=== PATIENT | male | born 1930 | race Caucasian/White ===

== ENCOUNTER 2018-06-10 22:26 | Inpatient (IN) | payer MEDICARE, OTHER ==
[~2018-06-10] VITALS: Ht 172.7 cm; Wt 81.5 kg
[2018-06-10 23:12] LABS: BASOPHILS ABSOLUTE AUTO 0.05 K/mm3 (0.00-0.23); BASOPHILS PERCENT AUTO 0 % (0-2); EOSINOPHILS ABSOLUTE AUTO 0.01 K/mm3 (0.00-0.68); EOSINOPHILS PERCENT AUTO 0 % (0-6); Hematocrit 49.3 % (37.0-53.0); IMMATURE GRAN ABSOLUTE AUTO 0.12 K/mm3 (0.00-0.10); IMMATURE GRAN PERCENT AUTO 1 % (0-1); LYMPHOCYTES ABSOLUTE AUTO 1.68 K/mm3 (0.84-5.20); LYMPHOCYTES PERCENT AUTO 11 % (21-46); MONOCYTES ABSOLUTE AUTO 1.41 K/mm3 (0.16-1.47); MONOCYTES PERCENT AUTO 10 % (4-13); Mean Corpuscular HGB 32.6 pg (26.0-34.0); Mean Corpuscular HGB Conc 34.5 g/dL (31.5-36.5); Mean Corpuscular Volume 94 fL (80-100); Mean Platelet Volume 10.2 fL (9.1-12.4); NEUTROPHILS ABSOLUTE AUTO 11.56 K/mm3 (1.96-9.15); NEUTROPHILS PERCENT AUTO 78 % (41-73); Platelet Count 228 K/mm3 (150-400); RDW Coefficient Variation 13.1 % (11.7-14.2); RDW Standard Deviation 43.9 fL (35.1-46.3); Red Blood Cell Count 5.22 M/mm3 (4.30-5.90); White Blood Cell Count 14.83 K/mm3 (4.00-11.30)
[2018-06-10 23:31] LABS: Albumin, Blood 3.6 g/dL (3.4-5.0); Albumin/Globulin Ratio 0.9 (0.8-1.8); Bilirubin, Total 0.9 mg/dL (0.1-1.0); Bun/Creatinine Ratio 36.8 (12.0-20.0); Calcium, Blood 8.7 mg/dL (8.5-10.1); Creatinine, Blood 2.96 mg/dL (0.60-1.20); Globulin, Blood 4.1 g/dL (2.2-4.0); Potassium, Blood 3.1 mmol/L (3.5-5.5); Total Protein, Blood 7.7 g/dL (6.4-8.2)
[2018-06-11] MEDS ORDERED: ALLERCLEAR10 MG PO (00:26)
[2018-06-11] MEDS ORDERED: TAMS.4ER PO (00:27)
[2018-06-11] MEDS ORDERED: LOSA25 PO (00:27)
--- NOTE | 2018-06-11 02:10 | NUR ---
transfer report from [facility] in ER on PT being admitted OBS status for acute renal failure/ dehydration. PT lives in [place] with his Sister. Hx of recent Flu and hx of requiring temporary dialysis in remote past. Has not voided in ER per report and very [place] but able to communicate. Await admission
--- NOTE | 2018-06-11 03:31 | NUR ---
ALERT ELDERLY MALE admitted from [facility] with ARF is very hard of hearing but wears no aides. He is alert and able to communicate dut difficult to get history from. PT refused to give urine sample put toilet paper in specimen. Jumps up out of bed and starting to pull on IV. Reinforced IV site with coban. bed alarm on due to weakness. Pt uses cane and has here. PT has IV fluids with potassium running. denies recent falls. [facility] soft diet with ground meat ordered versus gen diet due to left full dentures at home. Pleasant mild anxiety. Arrives alone from [facility] with transfer.
[2018-06-11 05:32] LABS: Source, Urine Clean Catch
[2018-06-11 05:42] LABS: Appearance, Urine Clear (Clear); Bilirubin, Urine Neg (Neg); Blood, Urine Neg (Neg); Color, Urine Yellow (P-Yellow); Glucose Qualitative, Urine Neg (Neg); Ketones, Urine Neg (Neg); Leukocyte Esterase, Urine Neg (Neg); Nitrite, Urine Neg (Neg); Protein, Urine 1+ (Neg); Urobilinogen, Urine NORM (Normal)
[2018-06-11 06:01] LABS: BASOPHILS ABSOLUTE AUTO 0.03 K/mm3 (0.00-0.23); BASOPHILS PERCENT AUTO 0 % (0-2); EOSINOPHILS ABSOLUTE AUTO 0.01 K/mm3 (0.00-0.68); EOSINOPHILS PERCENT AUTO 0 % (0-6); Hematocrit 46.5 % (37.0-53.0); Hemoglobin 15.8 g/dL (13.5-17.5); IMMATURE GRAN ABSOLUTE AUTO 0.11 K/mm3 (0.00-0.10); IMMATURE GRAN PERCENT AUTO 1 % (0-1); LYMPHOCYTES ABSOLUTE AUTO 1.68 K/mm3 (0.84-5.20); LYMPHOCYTES PERCENT AUTO 12 % (21-46); MONOCYTES ABSOLUTE AUTO 1.43 K/mm3 (0.16-1.47); MONOCYTES PERCENT AUTO 10 % (4-13); Mean Corpuscular HGB 32.9 pg (26.0-34.0); Mean Platelet Volume 9.6 fL (9.1-12.4); NEUTROPHILS ABSOLUTE AUTO 10.69 K/mm3 (1.96-9.15); NEUTROPHILS PERCENT AUTO 77 % (41-73); Platelet Count 322 K/mm3 (150-400); RDW Coefficient Variation 13.2 % (11.7-14.2); RDW Standard Deviation 46.5 fL (35.1-46.3); White Blood Cell Count 13.95 K/mm3 (4.00-11.30)
[2018-06-11 06:02] LABS: Mean Corpuscular Volume 97 fL (80-100)
[2018-06-11 06:16] LABS: Bun/Creatinine Ratio 36.9 (12.0-20.0); Calcium, Blood 8.1 mg/dL (8.5-10.1); Creatinine, Blood 2.9 mg/dL (0.60-1.20)
[2018-06-11 14:10] LABS: Bun/Creatinine Ratio 38.9 (12.0-20.0); Calcium, Blood 8.2 mg/dL (8.5-10.1); Creatinine, Blood 2.57 mg/dL (0.60-1.20)
--- NOTE | 2018-06-11 18:20 | NUR ---
SHIFT SUMMARY OX2. [place] AND COFUSED AT TIMES. 1 PERSON ASSIST WITH CANE TO BATHROOM; CONTINENT; USING URINAL WELL; EATING AND DRINKING; NPO AT MIDNIGHT PENDING RENAL ULTRASOUND (PLEASE KEEP NPO AFTER MIDNIGHT PER DR. COLLAZO). DENIES PAIN O OR OTHER DISTRESS. CXR TODAY. FULL CODE; DIFFICULTY OBTAINING IV ACCESS.
[2018-06-12 05:16] LABS: BASOPHILS ABSOLUTE AUTO 0.02 K/mm3 (0.00-0.23); BASOPHILS PERCENT AUTO 0 % (0-2); EOSINOPHILS ABSOLUTE AUTO 0.12 K/mm3 (0.00-0.68); EOSINOPHILS PERCENT AUTO 2 % (0-6); Hematocrit 38.1 % (37.0-53.0); Hemoglobin 12.7 g/dL (13.5-17.5); IMMATURE GRAN ABSOLUTE AUTO 0.06 K/mm3 (0.00-0.10); IMMATURE GRAN PERCENT AUTO 1 % (0-1); LYMPHOCYTES ABSOLUTE AUTO 1.83 K/mm3 (0.84-5.20); LYMPHOCYTES PERCENT AUTO 23 % (21-46); MONOCYTES ABSOLUTE AUTO 0.87 K/mm3 (0.16-1.47); MONOCYTES PERCENT AUTO 11 % (4-13); Mean Corpuscular HGB 32.2 pg (26.0-34.0); Mean Corpuscular HGB Conc 33.3 g/dL (31.5-36.5); Mean Corpuscular Volume 97 fL (80-100); Mean Platelet Volume 9.9 fL (9.1-12.4); NEUTROPHILS ABSOLUTE AUTO 5.25 K/mm3 (1.96-9.15); NEUTROPHILS PERCENT AUTO 64 % (41-73); Platelet Count 232 K/mm3 (150-400); RDW Coefficient Variation 13.3 % (11.7-14.2); Red Blood Cell Count 3.95 M/mm3 (4.30-5.90); White Blood Cell Count 8.15 K/mm3 (4.00-11.30)
[2018-06-12 05:43] LABS: Magnesium, Blood 2.9 mg/dL (1.6-2.4); Prostate Specific Antigen 0.916 ng/mL (0.000-4.000)
[2018-06-12 05:49] LABS: Alanine Aminotransfer (ALT/SGP 29 U/L (12-78); Albumin, Blood 2.7 g/dL (3.4-5.0); Alk Phos 55 U/L (50-136); Anion Gap 10 mmol/L (6-16); Aspartate Aminotrans (AST/SGOT 22 U/L (12-37); Bilirubin, Total 0.5 mg/dL (0.1-1.0); Blood Urea Nitrogen 84 mg/dL (8-24); Bun/Creatinine Ratio 37.3 (12.0-20.0); CO2, Blood 19 mmol/L (21-32); Calcium, Blood 7.6 mg/dL (8.5-10.1); Chloride, Blood 120 mmol/L (98-108); Creatinine, Blood 2.25 mg/dL (0.60-1.20); Globulin, Blood 2.8 g/dL (2.2-4.0); Glomerular Filtration Rate 29 (60-); Glucose, Blood 137 mg/dL (70-99); Potassium, Blood 3.4 mmol/L (3.5-5.5); Sodium, Blood 149 mmol/L (136-145)
[2018-06-12 05:58] LABS: Total Protein, Blood 5.5 g/dL (6.4-8.2)
--- NOTE | 2018-06-12 19:52 | NUR ---
SHIFT SUMMARY. A&OX3, SBA TO BATHROOM. PT DENIES PAIN, SOB, N/V. CONTINUES WITH IV FLUIDS. LABS IMPROVING. NO NEW CHANGES.
[2018-06-13 04:58] LABS: BASOPHILS ABSOLUTE AUTO 0.02 K/mm3 (0.00-0.23); BASOPHILS PERCENT AUTO 0 % (0-2); EOSINOPHILS ABSOLUTE AUTO 0.22 K/mm3 (0.00-0.68); EOSINOPHILS PERCENT AUTO 3 % (0-6); Hematocrit 37.1 % (37.0-53.0); Hemoglobin 12.5 g/dL (13.5-17.5); IMMATURE GRAN ABSOLUTE AUTO 0.08 K/mm3 (0.00-0.10); IMMATURE GRAN PERCENT AUTO 1 % (0-1); LYMPHOCYTES ABSOLUTE AUTO 1.58 K/mm3 (0.84-5.20); LYMPHOCYTES PERCENT AUTO 20 % (21-46); MONOCYTES ABSOLUTE AUTO 0.92 K/mm3 (0.16-1.47); MONOCYTES PERCENT AUTO 12 % (4-13); Mean Corpuscular HGB 32.1 pg (26.0-34.0); Mean Corpuscular HGB Conc 33.7 g/dL (31.5-36.5); Mean Corpuscular Volume 95 fL (80-100); Mean Platelet Volume 9.9 fL (9.1-12.4); NEUTROPHILS ABSOLUTE AUTO 4.94 K/mm3 (1.96-9.15); NEUTROPHILS PERCENT AUTO 64 % (41-73); Platelet Count 241 K/mm3 (150-400); RDW Coefficient Variation 13.4 % (11.7-14.2); RDW Standard Deviation 45.9 fL (35.1-46.3); Red Blood Cell Count 3.89 M/mm3 (4.30-5.90); White Blood Cell Count 7.76 K/mm3 (4.00-11.30)
[2018-06-13 05:39] LABS: Albumin, Blood 2.6 g/dL (3.4-5.0); Albumin/Globulin Ratio 0.9 (0.8-1.8); Bilirubin, Total 0.6 mg/dL (0.1-1.0); Bun/Creatinine Ratio 32.1 (12.0-20.0); Calcium, Blood 7.6 mg/dL (8.5-10.1); Creatinine, Blood 1.87 mg/dL (0.60-1.20); Potassium, Blood 3.5 mmol/L (3.5-5.5); Total Protein, Blood 5.6 g/dL (6.4-8.2)
--- NOTE | 2018-06-13 07:41 | NUR ---
LYING IN SEMI FOWLERS WITH EYES CLOSED. REPOSITIONS SELF IN BED TO COMFORT. DENIES FURTHER NEEDS AT THIS TIME. SAFETY MEASURES IN PLACE. WILL GIVE HAND OFF TO ONCOMING SHIFT USING SBAR.
--- NOTE | 2018-06-13 16:42 | NUR ---
SUMMARY PT IS A/O X2-3, HOWEVER HE IS VERY [place], SOMEWHAT DIFFICULT TO COMMUNICATE WITH. HE IS PLEASANT/COOPERATIVE. SBA TO CHAIR, USES URINAL IND. DX ARF, GFR 36, CREATININE IMPROVING @ 1.87. IV HYDRATION CONTINUES TODAY, D5 @ 125 ML/HR. IV SITE R ARM INFILTRATED, LEAKING THIS AM, D/C'D. NEW IV ACCESS LFA 22GA. VSS. PT STATE NO DISCOMFORT T/O DAY. HIS SISTER CALLED TODAY FOR UPDATE, POSSIBLE D/C HOME IN AM/DR COLLAZO'S NOTE. SISTER STATE TO CALL IF DC TOMORROW FOR TRANSPORTATION HOME.
[2018-06-14 04:52] LABS: Bun/Creatinine Ratio 28.9 (12.0-20.0); Creatinine, Blood 1.59 mg/dL (0.60-1.20); Potassium, Blood 3.8 mmol/L (3.5-5.5)
--- NOTE | 2018-06-14 05:25 | NUR ---
SHIFT SUMMARY PT A&O X4 T/O SHIFT. [place]. NO ACUTE CHANGES. PT DENIES SOB, CP AND NAUSEA T/O SHIFT; RA. VSS. UP WITH CANE AND SBA. PT IV INFILTRATED AND LEAKING. APPROX. 0145 DR. GONZALES NOTIFIED PT HAS HAD SEVERAL LINES INFILTRATED, T/O PERMISSION FOR PT TO BE W/O IV ACCESS. PT REPOSITIONED SELF FROM SIDE TO SIDE INDEPENDENTLY. BED ALARM AND SIDE RAILS FOR SAFETY. CALL LIGHT IN REACH; WCTM UNTIL REPORT TO DAY SHIFT RN.
[2018-06-14] MEDS ORDERED: FINA5 PO (12:30)
--- NOTE | 2018-06-14 12:33 | NUR ---
SPOKE WITH PTS SISTER ON PHONE AND SHE REPORTS SHE WOULD PREFER PT TO SEE A HOME CARE MANAGER IN [place] DUE TO PROXIMITY TO THEIR HOME. SPOKE WITH SAWMILL MOULDER OPERATOR JESUS ABOUT REQUEST TO BE MADE TOMORROW DURING NORMAL BUSINESS HOURS.
--- NOTE | 2018-06-14 14:29 | NUR ---
discharge PT UP TO CHAIR THIS AM, CHEERFUL/PLEASANT. STATE NO DISCOMFORT. UP TO CHAIR FOR BF. EVP GENERAL COUNSEL ASSIST WITH SHOWER. DR LAFLEUR IN TO SEE HIM, OK FOR D/C HOME TODAY, PROVIDE ORDERS. FAMILY NOTIFIED, HIS DAUGHTER IN LAW WILL DRIVE OVER FROM [place] FOR TRANSPORT HOME. SCRIPTS FAXED TO [facility] [place]/REQUEST. PT ASSISTED TO DRESS/GATHER BELONGINGS. MILLINERY BLOCKER NOTIFIED OF NEED FOR NEPHROLOGY F/U, FAMILY REQUEST IN [facility], CLOTH CUTTING INSPECTOR STATE CARE MANAGEMENT WILL ARRANGE & NOTIFY FAMILY. D/C INSTRUCT PROVIDED TO DIL ON ARRIVAL. W/C ESCORT FROM HOSP PROVIDED. THEY ARE PLEASANT/APPRECIATIVE.
== END 2018-06-14 14:35 | disposition home or self-care (01) | DRG 683 ==
LOC: ER 22:26 → MEDS 22:27 → ENPENDDIS 06-14 12:03 → MEDS 06-14 14:35
PROVIDERS: Emergency Medicine; Internal Medicine; ADMIT Internal Medicine
DX: N17.9 Acute kidney failure, unspecified (principal); E87.0 Hyperosmolality and hypernatremia; E87.2 Acidosis; Q61.3 Polycystic kidney, unspecified; N13.8 Other obstructive and reflux uropathy; N40.1 Benign prostatic hyperplasia with lower urinary tract symptoms; I12.9 Hypertensive chronic kidney disease with stage 1 through stage 4 chronic kidney disease, or unspecified chronic kidney disease; N18.3 Chronic kidney disease, stage 3 (moderate); E86.0 Dehydration; E87.6 Hypokalemia; M10.9 Gout, unspecified; J30.2 Other seasonal allergic rhinitis; Z87.891 Personal history of nicotine dependence
CPT/HCPCS: 36415; 71046; 76770; 80048; 80053; 83735; 84153; 85025; 96361; 96365; 96366; 96372; 96374; 96375; 96376; 99285-25; G0378; J1644; J3480; J7030; J7042; J7070